=== PATIENT | female | born 1970 ===

== ENCOUNTER 2020-05-18 10:23 | Outpatient (NON) | payer SELFPAY ==
[2020-05-18 22:46] LABS: SARS-CoV-2 RNA PCR Positive
== END 2020-05-18 10:24 ==
DX: U07.1 COVID-19 (principal)
CPT/HCPCS: C9803; U0003; U0005

== ENCOUNTER → 2021-06-15 15:31 | Outpatient (CLI) | payer OTHER, SELFPAY ==
--- NOTE | ~2021-06-15 | XR_ITS ---
EXAMINATION: XR chest 2V EXAM DATE: 06/15/2021 15:55 INDICATION: Cough TECHNIQUE: Frontal and lateral projections of the chest obtained and reviewed. There is no prior kateryna dy for comparison. FINDINGS: The lungs are clear. There are no pleural effusions. The cardiomediastinal silhouette is within normal limits. There is no pneumothorax suspected. The bones and soft tissues are unremarkab le. IMPRESSION: No acute cardiopulmonary findings. Reviewed, dictated and finalized at location B. [employer]
== END ==
DX: R05.9 Cough, unspecified (principal)
CPT/HCPCS: 71046

== ENCOUNTER → 2023-01-23 09:11 | Outpatient (CLI) | payer SELFPAY ==
--- NOTE | ~2023-01-23 | US_ITS ---
Limited Abdominal Sonogram: Real-time sonographic imaging of the right upper quadrant was performed. Clinical History: Abdominal pain Findings: The liver appears normal with no evidence of mass lesion or bile duct dilatation. Main por jo vein demonstrates normal direction of flow. The gallbladder is well distended, with tiny gallblad otto wall polyps measuring 2 mm. No gallstone or wall thickening evident. The common bile duct measure s 3 mm. The visualized pancreas, aorta, and IVC are unremarkable. Impression: Tiny gallbladder wall polyps, as detailed above. Reviewed, dictated and finalized at location M. Impression: Tiny gallbladder wall polyps, as detailed above.
== END ==
DX: R10.9 Unspecified abdominal pain (principal); K82.4 Cholesterolosis of gallbladder
CPT/HCPCS: 76705